=== PATIENT | female | born 1990 | race Caucasian/White ===

== ENCOUNTER 2019-10-20 10:50 | Emergency (ER) | payer SELFPAY ==
[~2019-10-20] VITALS: Ht 152.4 cm; Wt 93.2 kg
[2019-10-20] MEDS ORDERED: ACETAMINOPHEN 325 MG TABLET PO ONE (12:15)
[2019-10-20] MEDS ORDERED: SODIUM CHLORIDE 0.9% 1,000 ML IV ONE (14:00)
[2019-10-20] MEDS ORDERED: METOCLOPRAMIDE HCL 5 MG/ML 2 ML VIAL IVP ONE (14:00)
[2019-10-20] MEDS ORDERED: KETOROLAC TROMETHAMINE 30 MG/ML VIAL IVP ONE (15:00)
[2019-10-20] MEDS ORDERED: DiphenhydrAMINE HCL 50 MG/ML VIAL IVP ONE (15:00)
[2019-10-20 16:00] VITALS: BP 118/73
== END 2019-10-20 16:35 | disposition home or self-care (01) ==
LOC: EMS 10:52
DX: J98.8 Other specified respiratory disorders (principal); B97.29 Other coronavirus as the cause of diseases classified elsewhere; R11.10 Vomiting, unspecified; Z71.89 Other specified counseling
CPT/HCPCS: 70450; 71046; 81025; 87635; 96361; 96374; 96375; 99285; J1200; J1885; J2765; J7030